=== PATIENT | male | born 1945 | race Caucasian/White ===

== ENCOUNTER 2019-04-04 13:21 | Inpatient (IN) | payer MEDICARE, MEDICAID ==
[~2019-04-04] VITALS: Ht 177.8 cm; Wt 113.6 kg
[2019-04-04] MEDS ORDERED: CefTRIAXone 2gm/D5W 50ml 50 ML IV ONE (14:00)
[2019-04-04] MEDS ORDERED: vancomycin/NS 1 GM ADD-VANTAGE 250 ML IV ONE (14:00)
[2019-04-04] MEDS ORDERED: normal saline 1000ML IV soln IVB ONE (14:00)
[2019-04-04 14:34] LABS: BASOPHILS # (AUTO) 0.1 X10'3 (0-0.2); BASOPHILS % (AUTO) 0.5 % (0-1); EOSINOPHILS # (AUTO) 0.2 X10'3 (0-0.9); EOSINOPHILS % (AUTO) 1.7 % (0-6); HEMATOCRIT 39.3 % (42.0-52.0); HEMOGLOBIN 13.3 g/dl (14.0-17.9); LYMPHOCYTES # (AUTO) 2.1 X10'3 (1.1-4.8); LYMPHOCYTES % (AUTO) 18.3 % (21-51); MEAN CORPUSCULAR HEMOGLOBIN 31.3 PG (27.0-31.0); MEAN CORPUSCULAR HGB CONC 33.8 g/dL (33.0-36.5); MEAN CORPUSCULAR VOLUME 92.6 FL (78-98); MEAN PLATELET VOLUME 8.3 FL (7.4-10.4); MONOCYTES % (AUTO) 8.8 % (2-12); NEUTROPHILS # (AUTO) 8.1 X10'3 (1.8-7.7); NEUTROPHILS % (AUTO) 70.7 % (42-75); PLATELET COUNT 305 X10'3 (140-440); RED BLOOD COUNT 4.25 X10'6 (4.70-6.10); RED CELL DISTRIBUTION WIDTH 14.5 % (11.5-14.5); WHITE BLOOD COUNT 11.4 X10'3 (4.5-11.0)
[2019-04-04 14:40] LABS: ALANINE AMINOTRANSFERASE 20 U/L (12-78); ALBUMIN 3.2 G/DL (3.4-5.0); ALBUMIN/GLOBULIN RATIO 0.7 (1.1-1.5); ALKALINE PHOSPHATASE 137 IU/L (46-116); ANION GAP 9 (8-16); ASPARTATE AMINO TRANSFERASE 14 U/L (10-37); BILIRUBIN,TOTAL 0.4 MG/DL (0.1-1.0); BLOOD UREA NITROGEN 27 MG/DL (7-18); BUN/CREATININE RATIO 22.9 (5.4-32.0); C-REACTIVE PROTEIN 7.52 MG/DL (0.0-0.5); CHLORIDE 105 MMOL/L (99-107); CREATININE 1.18 MG/DL (0.60-1.10); GLUCOSE 220 MG/DL (70-104); PARTIAL THROMBOPLASTIN TIME 27 SECONDS (22-32); POTASSIUM 4.6 MMOL/L (3.5-5.1); SODIUM 142 MMOL/L (135-145); TOTAL PROTEIN 8.1 G/DL (6.4-8.2); eGFR 61 ML/MIN
[2019-04-04] MEDS ORDERED: XAL0.005OS EACHEYE (14:50)
[2019-04-04] MEDS ORDERED: DICL100G15 TOP (14:50)
[2019-04-04] MEDS ORDERED: INSU100I31 SQ (14:50)
[2019-04-04] MEDS ORDERED: LIDO700A32 TOP (14:50)
[2019-04-04] MEDS ORDERED: FURO40TA4 PO (14:50)
[2019-04-04] MEDS ORDERED: HYDROcodone/acetaminophen 5mg/325mg tablet PO PRN (15:10)
[2019-04-04] MEDS ORDERED: MESSAGE TO PHARMACY PO ONE (15:10)
[2019-04-04] MEDS ORDERED: glucagon, human recombinant 1mg kit SUBCUT PRN (15:10)
[2019-04-04] MEDS ORDERED: magnesium hydroxide 30ml (MOM) UD suspension PO PRN (15:10)
[2019-04-04] MEDS ORDERED: dextrose ORAL solution 15 GM/59 ML bottle PO PRN ×2 (15:10)
[2019-04-04] MEDS ORDERED: morphine 2 MG/ML inj. syringe IV PRN ×2 (15:10)
[2019-04-04] MEDS ORDERED: acetaminophen 325mg tablet PO PRN ×2 (15:10)
[2019-04-04] MEDS ORDERED: dextrose 50%-water 50ml dispensing syringe IV PRN ×2 (15:10)
[2019-04-04] MEDS ORDERED: ondansetron/PF 4mg/2ml inj IV PRN (15:10)
[2019-04-04] MEDS ORDERED: mag hydrox/Alum hydrox/simeth 30ml oral suspension PO PRN (15:10)
[2019-04-04] MEDS ORDERED: INSU100C10 SQ (15:32)
--- NOTE | 2019-04-04 15:43 | NUR ---
repositioned pt and gave cheese stick and yogurt
[2019-04-04 15:52] LABS: HEMOGLOBIN A1C 9.1 % (4.5-6.2)
[2019-04-04] MEDS: HYDROcodone/acetaminophen 10/325mg tab PO PRN ×2 (15:52→19:57)
[2019-04-04] MEDS: ceFAZolin 1GM/D5W- ADD-VANTAGE 50 ML IV SCH (16:47)
[2019-04-04 18:14] LABS: CLARITY,URINE CLEAR (Clear); COLOR,URINE YELLOW (Yellow); GLUCOSE, URINE NEGATIVE (Neg); KETONES,URINE NEGATIVE (Neg); LEUKOCYTE ESTERASE ,URINE NEGATIVE (Neg); NITRITES, URINE NEGATIVE (Neg); OCCULT BLOOD,URINE NEGATIVE (Neg); PH,URINE 5.5 (4.8-8.0); PROTEIN,URINE NEGATIVE (Neg); UROBILINOGEN,URINE 0.2 E.U/dL (0.2-1.0)
[2019-04-04 18:24] LABS: UA COLLECTION TYPE CLN CATCH MIDSTREAM
[2019-04-04] MEDS: gabapentin 400mg capsule PO SCH (18:45)
--- NOTE | 2019-04-04 18:56 | NUR ---
Patient in room ED 11. I have received report from EARL Vann and had the opportunity to ask questions and assume patient care.
[2019-04-04 19:00] VITALS: BP 120/73
--- NOTE | 2019-04-04 19:00 | NUR ---
Pt brought from Er via gurney, unable to amb to bed. transferred with slide board. bilat lower ext reddened elev on pillows. Oriented to room and routine. Addendum: 04/04/19 at 1924 by Bonny Calvert RN Amended: Links added.
[2019-04-04] MEDS: insulin glargine (Lantus) pen - multi-dose SQ SCH (21:00)
[2019-04-04] MEDS: latanoprost 0.005% 2.5ml ophthalmic drops EACHEYE SCH (21:48)
[2019-04-05] VITALS: BP 120/76
[2019-04-05] MEDS: gabapentin 400mg capsule PO SCH ×4 (00:06→23:51)
[2019-04-05] MEDS: ceFAZolin 1GM/D5W- ADD-VANTAGE 50 ML IV SCH ×4 (00:08→23:51)
[2019-04-05 05:31] LABS: BASOPHILS # (AUTO) 0.1 X10'3 (0-0.2); BASOPHILS % (AUTO) 0.8 % (0-1); EOSINOPHILS # (AUTO) 0.2 X10'3 (0-0.9); EOSINOPHILS % (AUTO) 2.6 % (0-6); HEMATOCRIT 35.2 % (42.0-52.0); HEMOGLOBIN 11.8 g/dl (14.0-17.9); LYMPHOCYTES # (AUTO) 2.1 X10'3 (1.1-4.8); LYMPHOCYTES % (AUTO) 26.3 % (21-51); MEAN CORPUSCULAR HEMOGLOBIN 31.2 PG (27.0-31.0); MEAN CORPUSCULAR HGB CONC 33.5 g/dL (33.0-36.5); MEAN CORPUSCULAR VOLUME 93.2 FL (78-98); MEAN PLATELET VOLUME 8.3 FL (7.4-10.4); MONOCYTES % (AUTO) 11.9 % (2-12); NEUTROPHILS # (AUTO) 4.7 X10'3 (1.8-7.7); NEUTROPHILS % (AUTO) 58.4 % (42-75); PLATELET COUNT 268 X10'3 (140-440); RED BLOOD COUNT 3.77 X10'6 (4.70-6.10); RED CELL DISTRIBUTION WIDTH 14.4 % (11.5-14.5); WHITE BLOOD COUNT 8.1 X10'3 (4.5-11.0)
[2019-04-05 05:40] LABS: ALBUMIN 2.4 G/DL (3.4-5.0); ANION GAP 9 (8-16); BLOOD UREA NITROGEN 24 MG/DL (7-18); BUN/CREATININE RATIO 23.8 (5.4-32.0); CALCIUM 8.5 MG/DL (8.5-10.1); CHLORIDE 109 MMOL/L (99-107); CREATININE 1.01 MG/DL (0.60-1.10); GLUCOSE 147 MG/DL (70-104); POTASSIUM 4.7 MMOL/L (3.5-5.1); SODIUM 144 MMOL/L (135-145); TOTAL CARBON DIOXIDE 26.5 MMOL/L (24-32); eGFR 73 ML/MIN
--- NOTE | 2019-04-05 06:35 | NUR ---
Problems reprioritized. Patient report given, questions answered & plan of care reviewed with EARL Wilhelm.
[2019-04-05 07:30] VITALS: BP 104/68
[2019-04-05] MEDS: enoxaparin 40mg/0.4ml syringe SUBCUT SCH (08:01)
[2019-04-05] MEDS ORDERED: mineral oil/petrolatum, white cream 113gm jar TP ONE (08:35)
[2019-04-05] MEDS: HYDROcodone/acetaminophen 10/325mg tab PO PRN ×3 (09:05→23:51)
[2019-04-05 11:30] VITALS: BP 135/80
[2019-04-05] MEDS: insulin Lispro (HumaLOG) vial - multi-dose SQ SCH ×2 (14:27→19:46)
--- NOTE | 2019-04-05 15:48 | NUR ---
Student Medication Administration: medication were reviewed, administered and documented per hospital policy by Bret SANTOS
--- NOTE | 2019-04-05 15:50 | NUR ---
Student documentation: I have reviewed all interventions, assessments performed and documented by .Carlin SANTOS
--- NOTE | 2019-04-05 16:59 | NUR ---
DM education, patient has A1c of 9.1, patient was given written DM education handout with verbal review and referral to outpatient DM education class on Tuesday. Patient reports he sees an MD on a regular basis and takes his DM medication as directed. Addendum: 04/05/19 at [address] Amended: Links added.
[2019-04-05 18:00] VITALS: BP 137/81
--- NOTE | 2019-04-05 18:38 | NUR ---
Problems reprioritized. Patient report given, questions answered & plan of care reviewed with Marcial ELLIOTT.
--- NOTE | 2019-04-05 18:39 | NUR ---
Patient in room [facility]. I have received report from EARL Wilhelm and had the opportunity to ask questions and assume patient care.
[2019-04-05] MEDS: lactobacillus rhamnosus 10,000 MMU CELLS/CAPSULE PO SCH (19:46)
[2019-04-05] MEDS: mineral oil/petrolatum, white cream 113gm jar TP SCH (19:48)
[2019-04-05] MEDS: latanoprost 0.005% 2.5ml ophthalmic drops EACHEYE SCH (21:57)
[2019-04-05] MEDS: insulin glargine (Lantus) pen - multi-dose SQ SCH (22:00)
[2019-04-06] VITALS: BP 129/75
[2019-04-06 05:47] LABS: BASOPHILS # (AUTO) 0.1 X10'3 (0-0.2); BASOPHILS % (AUTO) 0.8 % (0-1); EOSINOPHILS # (AUTO) 0.3 X10'3 (0-0.9); EOSINOPHILS % (AUTO) 4.2 % (0-6); HEMATOCRIT 34.6 % (42.0-52.0); HEMOGLOBIN 11.5 g/dl (14.0-17.9); LYMPHOCYTES # (AUTO) 2.4 X10'3 (1.1-4.8); LYMPHOCYTES % (AUTO) 37.3 % (21-51); MEAN CORPUSCULAR HEMOGLOBIN 30.8 PG (27.0-31.0); MEAN CORPUSCULAR HGB CONC 33.1 g/dL (33.0-36.5); MEAN CORPUSCULAR VOLUME 93.1 FL (78-98); MEAN PLATELET VOLUME 8.4 FL (7.4-10.4); MONOCYTES # (AUTO) 0.9 X10'3 (0-0.9); MONOCYTES % (AUTO) 13.8 % (2-12); NEUTROPHILS # (AUTO) 2.9 X10'3 (1.8-7.7); NEUTROPHILS % (AUTO) 43.9 % (42-75); PLATELET COUNT 281 X10'3 (140-440); RED BLOOD COUNT 3.72 X10'6 (4.70-6.10); RED CELL DISTRIBUTION WIDTH 14.3 % (11.5-14.5); WHITE BLOOD COUNT 6.5 X10'3 (4.5-11.0)
[2019-04-06 05:56] LABS: ALBUMIN 2.5 G/DL (3.4-5.0); ANION GAP 7 (8-16); BLOOD UREA NITROGEN 22 MG/DL (7-18); BUN/CREATININE RATIO 20.6 (5.4-32.0); CALCIUM 8.7 MG/DL (8.5-10.1); CHLORIDE 106 MMOL/L (99-107); CREATININE 1.07 MG/DL (0.60-1.10); GLUCOSE 132 MG/DL (70-104); POTASSIUM 4.6 MMOL/L (3.5-5.1); SODIUM 140 MMOL/L (135-145); TOTAL CARBON DIOXIDE 27.2 MMOL/L (24-32); eGFR 68 ML/MIN
--- NOTE | 2019-04-06 06:20 | NUR ---
Patient in room [facility]. I have received report from Marcial ELLIOTT and had the opportunity to ask questions and assume patient care.
--- NOTE | 2019-04-06 06:28 | NUR ---
Problems reprioritized. Patient report given, questions answered & plan of care reviewed with EARL Wilhelm.
[2019-04-06 07:28] VITALS: BP 125/74
[2019-04-06] MEDS: lactobacillus rhamnosus 10,000 MMU CELLS/CAPSULE PO SCH ×2 (08:41→20:25)
[2019-04-06] MEDS: gabapentin 400mg capsule PO SCH ×3 (08:42→23:17)
[2019-04-06] MEDS: enoxaparin 40mg/0.4ml syringe SUBCUT SCH (08:47)
[2019-04-06] MEDS: ceFAZolin 1GM/D5W- ADD-VANTAGE 50 ML IV SCH ×3 (08:52→23:18)
[2019-04-06] MEDS: mineral oil/petrolatum, white cream 113gm jar TP SCH ×2 (09:31→20:28)
[2019-04-06] MEDS: insulin Lispro (HumaLOG) vial - multi-dose SQ SCH ×2 (09:36→19:17)
[2019-04-06] MEDS: HYDROcodone/acetaminophen 10/325mg tab PO PRN ×2 (09:40→23:17)
[2019-04-06 11:42] VITALS: BP 130/70
[2019-04-06 18:00] VITALS: BP 124/74
--- NOTE | 2019-04-06 18:10 | NUR ---
Patient in room [facility]. I have received report from Melonie ELLIOTT and had the opportunity to ask questions and assume patient care.
--- NOTE | 2019-04-06 18:32 | NUR ---
Problems reprioritized. Patient report given, questions answered & plan of care reviewed with Brandon ELLIOTT.
[2019-04-06] MEDS: latanoprost 0.005% 2.5ml ophthalmic drops EACHEYE SCH (20:26)
[2019-04-06] MEDS: insulin glargine (Lantus) pen - multi-dose SQ SCH (21:27)
[2019-04-07] VITALS: BP 135/67
[2019-04-07 04:45] LABS: BASOPHILS # (AUTO) 0.1 X10'3 (0-0.2); EOSINOPHILS # (AUTO) 0.2 X10'3 (0-0.9); EOSINOPHILS % (AUTO) 3.9 % (0-6); HEMATOCRIT 36.9 % (42.0-52.0); HEMOGLOBIN 12.2 g/dl (14.0-17.9); LYMPHOCYTES # (AUTO) 2.4 X10'3 (1.1-4.8); LYMPHOCYTES % (AUTO) 36.9 % (21-51); MEAN CORPUSCULAR HEMOGLOBIN 30.8 PG (27.0-31.0); MEAN CORPUSCULAR HGB CONC 33.1 g/dL (33.0-36.5); MEAN CORPUSCULAR VOLUME 93.2 FL (78-98); MEAN PLATELET VOLUME 8.4 FL (7.4-10.4); MONOCYTES # (AUTO) 0.9 X10'3 (0-0.9); MONOCYTES % (AUTO) 13.6 % (2-12); NEUTROPHILS # (AUTO) 2.8 X10'3 (1.8-7.7); NEUTROPHILS % (AUTO) 44.6 % (42-75); PLATELET COUNT 302 X10'3 (140-440); RED BLOOD COUNT 3.96 X10'6 (4.70-6.10); RED CELL DISTRIBUTION WIDTH 14.2 % (11.5-14.5); WHITE BLOOD COUNT 6.4 X10'3 (4.5-11.0)
[2019-04-07 05:57] LABS: ALBUMIN 2.8 G/DL (3.4-5.0); ANION GAP 9 (8-16); BLOOD UREA NITROGEN 24 MG/DL (7-18); BUN/CREATININE RATIO 22.9 (5.4-32.0); CALCIUM 8.9 MG/DL (8.5-10.1); CHLORIDE 104 MMOL/L (99-107); CREATININE 1.05 MG/DL (0.60-1.10); POTASSIUM 4.6 MMOL/L (3.5-5.1); SODIUM 139 MMOL/L (135-145); TOTAL CARBON DIOXIDE 25.6 MMOL/L (24-32); eGFR 69 ML/MIN
[2019-04-07 06:11] LABS: GLUCOSE 119 MG/DL (70-104)
--- NOTE | 2019-04-07 06:15 | NUR ---
Problems reprioritized. Patient report given, questions answered & plan of care reviewed with Melonie ELLIOTT.
--- NOTE | 2019-04-07 06:53 | NUR ---
Patient in room [facility]. I have received report from Brandon ELLIOTT and had the opportunity to ask questions and assume patient care.
[2019-04-07 06:59] VITALS: BP 115/62
[2019-04-07] MEDS: ceFAZolin 1GM/D5W- ADD-VANTAGE 50 ML IV SCH (07:57)
[2019-04-07] MEDS: HYDROcodone/acetaminophen 10/325mg tab PO PRN (07:58)
[2019-04-07] MEDS: lactobacillus rhamnosus 10,000 MMU CELLS/CAPSULE PO SCH (07:58)
[2019-04-07] MEDS: gabapentin 400mg capsule PO SCH (07:58)
[2019-04-07] MEDS: enoxaparin 40mg/0.4ml syringe SUBCUT SCH (07:58)
[2019-04-07] MEDS: mineral oil/petrolatum, white cream 113gm jar TP SCH (07:59)
[2019-04-07] MEDS: insulin Lispro (HumaLOG) vial - multi-dose SQ SCH (09:20)
[2019-04-07] MEDS ORDERED: CEPH250T PO (09:43)
[2019-04-07] MEDS ORDERED: HYDR-4383 PO (09:43)
[2019-04-07] MEDS ORDERED: GABA-534 PO (09:43)
[2019-04-07 11:36] VITALS: BP 110/71
--- NOTE | 2019-04-07 12:42 | NUR ---
Patient discharged with all belongings. Friend Patti to take pt home. W/C to front lobby. IV taken out.
== END 2019-04-07 12:20 | disposition home health service (06) | DRG 603 ==
LOC: ER 13:22 → ED HOLD 15:06 → EDBEDREQ 18:11 → SUR 3N 19:03
PROVIDERS: ADMIT Internal Medicine; ATTEND Internal Medicine
DX: L03.115 Cellulitis of right lower limb (principal); N17.9 Acute kidney failure, unspecified; E11.65 Type 2 diabetes mellitus with hyperglycemia; E11.42 Type 2 diabetes mellitus with diabetic polyneuropathy; E78.00 Pure hypercholesterolemia, unspecified; F17.210 Nicotine dependence, cigarettes, uncomplicated; H40.9 Unspecified glaucoma; I10 Essential (primary) hypertension; I48.91 Unspecified atrial fibrillation; D64.9 Anemia, unspecified; M19.90 Unspecified osteoarthritis, unspecified site; J44.9 Chronic obstructive pulmonary disease, unspecified; K21.9 Gastro-esophageal reflux disease without esophagitis; Z79.4 Long term (current) use of insulin; Z79.899 Other long term (current) drug therapy; Z85.819 Personal history of malignant neoplasm of unspecified site of lip, oral cavity, and pharynx
CPT/HCPCS: 36415; 71045; 80048; 80053; 81003; 82948; 83036; 83605; 83880; 84145; 85025; 85610; 85651; 85730; 86038; 86140; 87040; 87081; 93922; 93971; 96365; 97116; 97161; 97530; 99285; G0378; J0690; J0696; J1650; J1815; J2270; J3370

== ENCOUNTER 2019-04-11 14:03 | Emergency (ER) | payer MEDICARE, MEDICAID ==
[~2019-04-11] VITALS: Ht 177.8 cm; Wt 113.6 kg
[~2019-04-11 14:03] MED LIST: CEPH250T PO; DICL100G15 TOP; FURO40TA4 PO; GABA-534 PO; HYDR-4383 PO; INSU100C10 SQ; INSU100I31 SQ; LIDO700A32 TOP; XAL0.005OS EACHEYE
[2019-04-11 14:31] VITALS: BP 149/89
[2019-04-11 16:08] LABS: BASOPHILS # (AUTO) 0.1 X10'3 (0-0.2); EOSINOPHILS # (AUTO) 0.2 X10'3 (0-0.9); EOSINOPHILS % (AUTO) 2.4 % (0-6); HEMATOCRIT 39.5 % (42.0-52.0); HEMOGLOBIN 13.2 g/dl (14.0-17.9); LYMPHOCYTES # (AUTO) 1.9 X10'3 (1.1-4.8); LYMPHOCYTES % (AUTO) 26.2 % (21-51); MEAN CORPUSCULAR HEMOGLOBIN 31.1 PG (27.0-31.0); MEAN CORPUSCULAR HGB CONC 33.5 g/dL (33.0-36.5); MEAN CORPUSCULAR VOLUME 92.8 FL (78-98); MEAN PLATELET VOLUME 8.3 FL (7.4-10.4); MONOCYTES # (AUTO) 0.9 X10'3 (0-0.9); MONOCYTES % (AUTO) 11.9 % (2-12); NEUTROPHILS # (AUTO) 4.3 X10'3 (1.8-7.7); NEUTROPHILS % (AUTO) 58.5 % (42-75); PLATELET COUNT 300 X10'3 (140-440); RED BLOOD COUNT 4.26 X10'6 (4.70-6.10); RED CELL DISTRIBUTION WIDTH 14.3 % (11.5-14.5); WHITE BLOOD COUNT 7.3 X10'3 (4.5-11.0)
[2019-04-11 16:17] LABS: PARTIAL THROMBOPLASTIN TIME 27 SECONDS (22-32)
[2019-04-11 16:26] LABS: ALANINE AMINOTRANSFERASE 26 U/L (12-78); ALBUMIN 3.2 G/DL (3.4-5.0); ALBUMIN/GLOBULIN RATIO 0.7 (1.1-1.5); ALKALINE PHOSPHATASE 122 IU/L (46-116); ANION GAP 9 (8-16); ASPARTATE AMINO TRANSFERASE 19 U/L (10-37); BILIRUBIN,TOTAL 0.2 MG/DL (0.1-1.0); BLOOD UREA NITROGEN 19 MG/DL (7-18); BUN/CREATININE RATIO 19.8 (5.4-32.0); CALCIUM 9.2 MG/DL (8.5-10.1); CHLORIDE 105 MMOL/L (99-107); CREATININE 0.96 MG/DL (0.60-1.10); GLUCOSE 197 MG/DL (70-104); POTASSIUM 4.4 MMOL/L (3.5-5.1); SODIUM 141 MMOL/L (135-145); TOTAL CARBON DIOXIDE 27.2 MMOL/L (24-32); TOTAL PROTEIN 8.1 G/DL (6.4-8.2); eGFR 77 ML/MIN
--- NOTE | 2019-04-11 17:30 | NUR ---
pt refused treatment. Stated that he would do it at home and just wants to leave. RN notified
== END 2019-04-11 17:46 | disposition home or self-care (01) ==
LOC: ER 14:04
DX: L03.116 Cellulitis of left lower limb (principal); L03.115 Cellulitis of right lower limb; E11.42 Type 2 diabetes mellitus with diabetic polyneuropathy; I48.91 Unspecified atrial fibrillation; J44.9 Chronic obstructive pulmonary disease, unspecified; I10 Essential (primary) hypertension; M19.90 Unspecified osteoarthritis, unspecified site; E78.00 Pure hypercholesterolemia, unspecified; Z79.2 Long term (current) use of antibiotics; Z98.890 Other specified postprocedural states
CPT/HCPCS: 36415; 80053; 83605; 84145; 85025; 85610; 85730; 99284